=== PATIENT | male | born 1950 | race Caucasian/White ===

== ENCOUNTER 2023-03-30 12:46 | Outpatient (CLI) | payer OTHER, SELFPAY | END 2023-03-30 12:47 | disposition home or self-care (01) | LOC: WOUND 12:53 | PROVIDERS: PCP Family Medicine; Visit Provider Nurse Practitioner Family | DX: E11.621 Type 2 diabetes mellitus with foot ulcer (principal); L97.518 Non-pressure chronic ulcer of other part of right foot with other specified severity; Z79.84 Long term (current) use of oral hypoglycemic drugs | CPT/HCPCS: 97597; 99203 ==

== ENCOUNTER 2023-04-06 14:06 | Outpatient (CLI) | payer OTHER, SELFPAY ==
--- NOTE | 2023-04-06 14:00 | CRLHL7_ITS ---
For Patients: As a result of the Century Cures Act, medical imaging exams and procedure reports are released immediately into your electronic medical record. You may view this report before your referring provider. If you have questions, please contact your health care provider. DUPLEX ARTERIAL ULTRASOUND BILATERAL LOWER EXTREMITIES 04/06/2023 CLINICAL HISTORY: Non healing right lower extremity wound, peripheral arterial disease. COMPARISON: None. TECHNIQUE: The bilateral lower extremity arteries were examined per exam specific protocol with nam-scale ultrasound, color-flow and Doppler spectral analysis. Peak systolic velocities (PSV), Doppler waveform quality and Velocity Ratios if applicable, were documented at sites per exam specific protocol. FINDINGS: Right lower extremity: Multiphasic waveforms are seen in the common femoral, deep femoral and superficial femoral arteries with transition to monophasic waveforms in the proximal popliteal artery, which may be indicative of underlying disease in this region. No hemodynamically significant stenoses or occlusions are identified. Left lower extremity: Predominantly multiphasic waveforms are seen throughout with monophasic waveforms noted in the posterior tibial, anterior tibial and dorsalis pedis arteries. Elevated velocities in the proximal superficial femoral artery measuring up to 260 cm/s which may be indicative of an underlying hemodynamically significant stenosis in this region. RIGHT: PSV (cm/second). Waveform (Tri-T, Bi-B [place]-M). PACKAGING DESIGNER: 67 T DFA: 37 T FA PRX: 67 B FA MID: 67 T FA DISTAL: 137 B POP A: 28 M JENNIFER A: 58 M EVIDENCE SPECIALIST: 96 M KORIN: 37 M DPA: 123 M LEFT: PSV (cm/second). Waveform (Tri-T, Bi-B [place]-M). PACKAGING DESIGNER: 89 T DFA: 195 B FA PRX: 260 T FA MID: 163 T FA DISTAL: 123 T POP A: 29 T JENNIFER A: 25 T EVIDENCE SPECIALIST: 21 M KORIN: 31 M DPA: 70 M IMPRESSION: 1. Right lower extremity: Transition to monophasic waveforms in the popliteal artery which may be indicative of underlying disease in this region. No hemodynamically significant stenoses or occlusions are identified. 2. Left lower extremity: Elevated velocities in the proximal femoral artery measuring up to 260 cm/s which may be indicative of moderate (50-75 percent) stenosis. No arterial occlusions are identified. Serge Griffin M.D. [email or web address] Transcribed: 3:48 pm DW/Dictated by: Serge Griffin MD @ 04/07/2023 12:11:00 PM (Electronically Signed)
== END 2023-04-06 14:07 | disposition home or self-care (01) ==
LOC: US 14:07
PROVIDERS: PCP Family Medicine; Visit Provider Nurse Practitioner Family
DX: E11.621 Type 2 diabetes mellitus with foot ulcer (principal)
CPT/HCPCS: 93926; 97597

== ENCOUNTER 2023-04-13 14:00 | Outpatient (CLI) | payer OTHER, SELFPAY | END 2023-04-13 14:01 | disposition home or self-care (01) | LOC: WOUND 14:00 | PROVIDERS: PCP Family Medicine; Visit Provider Nurse Practitioner Family | DX: E11.621 Type 2 diabetes mellitus with foot ulcer (principal); L97.518 Non-pressure chronic ulcer of other part of right foot with other specified severity; Z79.4 Long term (current) use of insulin | CPT/HCPCS: 11042 ==

== ENCOUNTER 2023-05-17 14:29 | Outpatient (CLI) | payer OTHER, SELFPAY | END 2023-05-17 14:30 | disposition home or self-care (01) | LOC: WOUND 14:30 | PROVIDERS: PCP Family Medicine; Visit Provider Nurse Practitioner Family | DX: E11.621 Type 2 diabetes mellitus with foot ulcer (principal); L97.518 Non-pressure chronic ulcer of other part of right foot with other specified severity; Z79.4 Long term (current) use of insulin | CPT/HCPCS: 11042 ==

== ENCOUNTER 2023-06-08 10:39 | Outpatient (CLI) | payer OTHER, SELFPAY | END 2023-06-08 10:40 | disposition home or self-care (01) | LOC: WOUND 10:39 | PROVIDERS: PCP Family Medicine; Visit Provider Nurse Practitioner Family | DX: E11.621 Type 2 diabetes mellitus with foot ulcer (principal); L97.518 Non-pressure chronic ulcer of other part of right foot with other specified severity; Z79.4 Long term (current) use of insulin | CPT/HCPCS: 97597 ==

== ENCOUNTER 2023-07-06 10:33 | Outpatient (CLI) | payer OTHER, SELFPAY | END 2023-07-06 10:34 | disposition home or self-care (01) | LOC: WOUND 10:33 | PROVIDERS: PCP Family Medicine; Visit Provider Nurse Practitioner Family | DX: E11.621 Type 2 diabetes mellitus with foot ulcer (principal); L97.518 Non-pressure chronic ulcer of other part of right foot with other specified severity; Z79.4 Long term (current) use of insulin | CPT/HCPCS: 11042 ==

== ENCOUNTER 2023-08-03 10:29 | Outpatient (CLI) | payer OTHER, SELFPAY | END 2023-08-03 10:30 | disposition home or self-care (01) | LOC: WOUND 10:29 | PROVIDERS: PCP Family Medicine; Visit Provider Nurse Practitioner Family | DX: E11.621 Type 2 diabetes mellitus with foot ulcer (principal); L97.518 Non-pressure chronic ulcer of other part of right foot with other specified severity; Z79.4 Long term (current) use of insulin | CPT/HCPCS: 11042 ==